=== PATIENT | male | born 1945 | race Caucasian/White ===

== ENCOUNTER → 2020-04-19 14:00 | Outpatient (BNVA) | payer MEDICARE, OTHER, SELFPAY | PROVIDERS: Family Provider Family Medicine; PCP Family Medicine; Visit Provider Nurse Practitioner | DX: Z20.828 Contact with and (suspected) exposure to other viral communicable diseases (principal) | CPT/HCPCS: 87635 ==

== ENCOUNTER → 2021-03-19 09:42 | Outpatient (BNVA) | payer MEDICARE, OTHER, SELFPAY | PROVIDERS: Family Provider Family Medicine; PCP Family Medicine; Visit Provider Nurse Practitioner Family | DX: Z20.822 Contact with and (suspected) exposure to COVID-19 (principal); J06.9 Acute upper respiratory infection, unspecified | CPT/HCPCS: 87635 ==

== ENCOUNTER → 2021-11-27 07:53 | Outpatient (BNVA) | payer MEDICARE, OTHER, SELFPAY | PROVIDERS: Family Provider Family Medicine; PCP Family Medicine; Visit Provider Family Medicine | DX: E11.9 Type 2 diabetes mellitus without complications (principal) | CPT/HCPCS: 80053; 83036; 85025 ==

== ENCOUNTER → 2022-04-08 07:33 | Outpatient (BNVA) | payer MEDICARE, OTHER, SELFPAY | PROVIDERS: Family Provider Family Medicine; PCP Family Medicine; Visit Provider Clinical Nurse Specialist Adult Health | DX: R31.9 Hematuria, unspecified (principal) | CPT/HCPCS: 81000; 87086 ==

== ENCOUNTER → 2022-06-10 08:08 | Outpatient (BNVA) | payer MEDICARE, OTHER, SELFPAY | PROVIDERS: Family Provider Family Medicine; PCP Family Medicine; Visit Provider Family Medicine | DX: I10 Essential (primary) hypertension (principal); M77.9 Enthesopathy, unspecified; R31.9 Hematuria, unspecified | CPT/HCPCS: 80053; 80061; 85025 ==

== ENCOUNTER → 2022-08-09 10:51 | Outpatient (BNVA) | payer MEDICARE, OTHER, SELFPAY | PROVIDERS: Family Provider Family Medicine; PCP Family Medicine; Visit Provider Clinical Nurse Specialist Adult Health | DX: R31.0 Gross hematuria (principal) | CPT/HCPCS: 87086 ==

== ENCOUNTER → 2022-08-13 14:23 | Outpatient (BNVA) | payer MEDICARE, OTHER, SELFPAY | PROVIDERS: Family Provider Family Medicine; PCP Family Medicine; Visit Provider Clinical Nurse Specialist Adult Health | DX: R31.0 Gross hematuria (principal) | CPT/HCPCS: 81000 ==

== ENCOUNTER → 2022-12-10 08:04 | Outpatient (BNVA) | payer MEDICARE, OTHER, SELFPAY | PROVIDERS: Family Provider Family Medicine; PCP Family Medicine; Visit Provider Family Medicine | DX: E79.0 Hyperuricemia without signs of inflammatory arthritis and tophaceous disease (principal); R31.9 Hematuria, unspecified; I10 Essential (primary) hypertension; M77.9 Enthesopathy, unspecified; Z13.6 Encounter for screening for cardiovascular disorders; M19.90 Unspecified osteoarthritis, unspecified site | CPT/HCPCS: 80053; 80061; 84550; 85025 ==

== ENCOUNTER → 2023-05-27 08:19 | Outpatient (BNVA) | payer MEDICARE, OTHER, SELFPAY | PROVIDERS: Family Provider Family Medicine; PCP Family Medicine; Visit Provider Family Medicine | DX: I10 Essential (primary) hypertension (principal); R31.0 Gross hematuria; C67.9 Malignant neoplasm of bladder, unspecified; B35.9 Dermatophytosis, unspecified; E79.0 Hyperuricemia without signs of inflammatory arthritis and tophaceous disease | CPT/HCPCS: 80053; 80061; 84550; 85025 ==

== ENCOUNTER 2023-10-27 22:25 | Emergency (ER) | payer MEDICARE, OTHER, SELFPAY ==
[2023-10-27 22:33] VITALS: BP 134/82; PULSE 81; RESP 20; TEMP 36.9; O2SAT 100
--- NOTE | 2023-10-27 23:07 | ED_ITS ---
HPI - Male Genitourinary 2 General: Chief complaint: Urogenital-Male Stated complaint: Bladder spasms blood in cath tube Time Seen by Provider: 10/27/23 22:50 Source: patient Mode of arrival: ambulatory Limitations: no limitations History of Present Illness: 77-year-old male history of bladder canc er states he started having hematuria today he went to his urologist clinic in [place] had a Noble placed states that he has not had any output from the Noble in the last 2 hours and has been having severe pain over his bladder. Denies any fever denies any vomiting diarrhea Associated symptoms: Reports hematuria; Deny nausea or vomiting Review of Systems 2 Const: Denies: fever(s), chills, body aches or change in appetite ENMT: Denies: throat pain or dental pain Card: Denies: chest pain Resp: Denies: dyspnea GI: Denies: abdominal pain, nausea, vomiting or diarrhea : Reports: difficulty urinating and hematuria Musc: Denies: neck pain or back pain Skin/Breast: Denies: rash Neuro: Denies: headache(s) PFSH ED 2 PFSH: Medical History Essential hypertension Prostate cancer with hx of radiation Social History Marital status: Physical Exam 2 Const: COMMON NORMALS: patient oriented x3 HENMT: COMMON NORMALS: normocephalic and atraumatic HEAD & SCALP: n ormocephalic and atraumatic Eye: COMMON NORMALS: conjunctivae normal CONJUNCTIVA: Yes conjunctivae normal Neck/C-Spine: COMMON NORMALS: full ROM and supple Chest: COMMONS NORMALS: normal inspection of the chest Resp: COMMON NORMALS: normal respiratory effort Cardio: COMMON NORMALS: regular rate RATE: regular rate GI: OTHER: Tenderness over his bladder : OTHER: Noble in place with blood no output at this time Extremity: COMMON NORMALS: normal to inspection and full ROM Neuro: COMMON NORMALS: patient oriented x3, moves all extremities and no focal motor deficits Psych: COMMON NORMALS: mental status grossly normal, Normal thought process present and cooperative THOUGHT PROCESS: Normal thought process present Skin: COMMON NORMALS: no rashes or lesions noted and no wounds GENERAL SKIN EXAM: no rashes or lesions noted Course 2 Vital Signs: Vital signs: Vital Signs Temperature 98.4 F 10/27/23 22:33 Pulse Rate 66 10/28/23 00:34 Respiratory Rate 16 10/28/23 00:34 Blood Pressure 116/64 10/28/23 00:34 Pulse Oximetry 97 10/28/23 00:34 MDM - Male Medical Decision Making Patient presents here with urinary retention along with hematuria was able to get some slight urine after Noble was placed he had some relief of his pain still extreme hematuria though. CT does show likely blood products in his bladder and concern that Noble was outside of the bladder but no sign of free air his abdominal exam here currently is benign with no rigidness I did speak to [place] where his urologist is and will transfer him there ER to ER Medical Records I reviewed the patient's medical records. Lab Data I reviewed the patient's lab results. 10/27/23 23:55 10/27/23 23:55 Radiology Impressions Abdomen/Pelvis CT 10/28/23 00:00 IMPRESSION: 1. Question whether the Noble catheter tip extends beyond the bladder wall seen on sagittal image 39. No free air in the peritoneal cavity or in the perivesical space. 2. Distended urinary bladder despite the presence of the Noble catheter. There is hyperdense material noted in the bladder lumen which may represent a mix of blood products and contrast, correlate clinically. Underlying bladder mass cannot on this exam. 3. Cholelithiasis. Laboratory Results WBC 9.77 10^3/uL (3.29-11.43) 10/27/23 23:55 RBC 4.42 10^6/uL (3.85-5.65) 10/27/23 23:55 Hgb 15.20 g/dL (11.27-16.99) 10/27/23 23:55 Hct 41.1 % (37-53) 10/27/23 23:55 MCV 93.0 fl (82-101) 10/27/23 23:55 MCH 34.4 pg (27-33) H 10/27/23 23:55 MCHC 37.0 g/dL (30-55) 10/27/23 23:55 RDW 13.3 % (12.1-15.1) 10/27/23 23:55 Plt Count 209 10^3/cmm (157-399) 10/27/23 23:55 MPV 10.5 fL (7.4-10.4) H 10/27/23 23:55 Neut % (Auto) 62.2 % 10/27/23 23:55 Lymph % (Auto) 26.7 % 10/27/23 23:55 [place] % (Auto) 9.1 % 10/27/23 23:55 Eos % (Auto) 1.2 % 10/27/23 23:55 Baso % (Auto) 0.6 % 10/27/23 23:55 Neut # (Auto) 6.07 10^3/uL (1.8-7.7) 10/27/23 23:55 Lymph # (Auto) 2.6 10^3/uL (0.8-4.8) 10/27/23 23:55 [place] # (Auto) 0.9 10^3/uL (0.2-0.9) 10/27/23 23:55 Eos # (Auto) 0.1 10^3/uL (0.0-0.8) 10/27/23 23:55 Baso # (Auto) 0.1 10^3/uL (0.0-0.1) 10/27/23 23:55 Nucleated RBC % (auto) 0 % 10/27/23 23:55 Nucleated RBCs # 0.0 /100WBC 10/27/23 23:55 Sodium 139 mmol/L (136-145) 10/27/23 23:55 Potassium 3.7 mmol/L (3.5-5.1) 10/27/23 23:55 Chloride 102 mmol/L (98-107) 10/27/23 23:55 Carbon Dioxide 20 mmol/L (22-29) L 10/27/23 23:55 Anion Gap 20.7 (5-19) H 10/27/23 23:55 BUN 15 mg/dL (8-23) 10/27/23 23:55 Creatinine 1.1 mg/dL (0.7-1.2) 10/27/23 23:55 GFR Calculation Not Reportable 10/27/23 23:55 Glucose 141 mg/dL (65-115) H 10/27/23 23:55 Calculated Osmolality 291 mOsm/kg (285-295) 10/27/23 23:55 Calcium 9.0 mg/dL (8.5-10.5) 10/27/23 23:55 All radiology interpretation(s) finalized by discharge Discharge Plan Discharge Patient Disposition: Xfer Short-Term Hosp Clinical Impression: Bladder cancer, Hematuria, Acute urinary retention Condition: Stable Prescriptions: No Action valsartan 160 mg tablet 160 mg PO DAILY Qty: 90 1RF clotrimazole 1 % cream 1 applic topical BID 28 Days Qty: 45 1RF amlodipine 5 mg tablet 5 mg PO DAILY Qty: 90 1RF prednisone 20 mg tablet 40 mg PO DAILY 5 Days Qty: 10 0RF oxybutynin chloride 5 mg tablet 5 mg PO BID Qty: 60 0RF allopurinol 300 mg tablet 300 mg PO DAILY Qty: 90 3RF Referrals: Freddie Worrell DO [Primary Care Provider] - Coding Level of Care Code ED [employer] for [facility]
[2023-10-27] MEDS: morphine 4 mg/mL SDV 1 mL IVP (23:28)
[2023-10-27] MEDS: ondansetron 2 mg/ML SDV 2 mL 4 MG IVP (23:28)
[2023-10-27 23:30] VITALS: BP 119/64; PULSE 68; RESP 18; O2SAT 100
[2023-10-28] VITALS (8 sets, daily range): BP systolic 112–127; BP diastolic 64–78; PULSE 66–86; RESP 15–18; O2SAT 85–100
--- NOTE | 2023-10-28 | CTR_ITS ---
PROCEDURE INFORMATION: Exam: CT Abdomen And Pelvis With Contrast Exam date and time: 10/28/2023 12:54 AM Age: 77 years old Clinical indication: Other: Hematuria TECHNIQUE: Imaging protocol: Computed tomography of the abdomen and pelvis with contrast. Radiation optimization: All CT scans at this facility use at least one of these dose optimization techniques: automated exposure control; mA and/or kV adjustment per patient size (includes targeted exams where dose is matched to clinical indication); or iterative reconstruction. Contrast material: OMNI 350; Contrast volume: 100 ml; Contrast route: INTRAVENOUS (IV); COMPARISON: No relevant prior studies available. RADIATION DOSE METRICS: Total DLP (mGy-cm): 1045.1 FINDINGS: Diaphragm: Small hiatal hernia. Liver: Fatty liver. Gallbladder and biliary ducts: Small stone noted in the gallbladder. Pancreas: No ductal dilation. Spleen: Too small to characterize hypodense lesion in the spleen measuring 7 mm. Adrenal glands: Normal. No mass. Kidneys and ureters: No hydronephrosis. Stomach and bowel: Scattered colonic diverticulosis without findings of diverticulitis. Appendix: No evidence of appendicitis. Intraperitoneal space: No free air in the peritoneal cavity or in the perivesical space. Vasculature: No abdominal aortic aneurysm. Lymph nodes: No enlarged lymph nodes. Urinary bladder: Question whether the Noble catheter tip extends beyond the bladder wall seen on sagittal image 39. Distended urinary bladder despite the presence of the Noble catheter. There is hyperdense material noted in the bladder lumen which may represent a mix of blood products and contrast, correlate clinically. Reproductive: Unremarkable as visualized. Bones/joints: Degenerative changes of the spine. Soft tissues: Unremarkable. CT/CT abdomen pelvis w con* [id number] IMPRESSION: 1. Question whether the Noble catheter tip extends beyond the bladder wall seen on sagittal image 39. No free air in the peritoneal cavity or in the perivesical space. 2. Distended urinary bladder despite the presence of the Noble catheter. There is hyperdense material noted in the bladder lumen which may represent a mix of blood products and contrast, correlate clinically. Underlying bladder mass cannot on this exam. 3. Cholelithiasis.
[2023-10-28] MEDS: HYDROmorphone 1 mg/mL INJ 1 mL IVP ×2 (00:01→02:57)
[2023-10-28 00:09] LABS: Basophils # 0.1 10^3/uL (0.0-0.1); Basophils % 0.6 %; Eosinophils # 0.1 10^3/uL (0.0-0.8); Eosinophils % 1.2 %; Hematocrit 41.1 % (37-53); Lymphocytes # 2.6 10^3/uL (0.8-4.8); Lymphocytes % 26.7 %; Mean Corpuscular Hemoglobin 34.4 pg (27-33); Mean Platelet Volume 10.5 fL (7.4-10.4); Monocytes # 0.9 10^3/uL (0.2-0.9); Monocytes % 9.1 %; Neutrophils # 6.07 10^3/uL (1.8-7.7); Neutrophils % 62.2 %; Nucleated Red Blood Cells % 0 %; Platelet Count 209 10^3/cmm (157-399); Red Blood Count 4.42 10^6/uL (3.85-5.65); Red Cell Distribution Width 13.3 % (12.1-15.1); White Blood Count 9.77 10^3/uL (3.29-11.43)
[2023-10-28 00:27] LABS: Anion Gap 20.7 (5-19); Blood Urea Nitrogen 15 mg/dL (8-23); Carbon Dioxide 20 mmol/L (22-29); Chloride 102 mmol/L (98-107); Glucose 141 mg/dL (65-115); Osmolality Calculated 291 mOsm/kg (285-295); Potassium 3.7 mmol/L (3.5-5.1); Sodium 139 mmol/L (136-145)
--- NOTE | 2023-10-28 00:41 | PC.NURSE ---
This nurse removed existing Noble Catheter that was not draining per provider order, nurse inserted 18F 3way catheter with no gravity return of urine/blood however nurse was able to flush and pull blood/clots slowly with a 60 ml syringe, attempted to run CBI however still no urine/blood return by gravity. Nurse removed 18F 3way catheter per provider order to insert a 24F 3way catheter with immediate return of approx 600 ml of dark red blood before significantly slowing to near no gravity drainage. Nurse irrigated with another 500 ml of sterile water with very little urine/blood return through catheter
[2023-10-28] MEDS: iohexol 350 mg/mL 500 mL Btl (per mL) IV (00:57)
--- NOTE | 2023-10-28 04:05 | PC.NURSE ---
PT PLACED ON 2L NC DUE TO DECREASING SPO2 WHEN ASLEEP.
== END 2023-10-28 05:04 | disposition short-term general hospital (02) ==
PROVIDERS: Emergency Provider Emergency Medicine; PCP Family Medicine
DX: R33.9 Retention of urine, unspecified (principal); R31.9 Hematuria, unspecified; C67.9 Malignant neoplasm of bladder, unspecified; I10 Essential (primary) hypertension; Z85.46 Personal history of malignant neoplasm of prostate; Z92.3 Personal history of irradiation
CPT/HCPCS: 51702; 74177; 80048; 85025; 96374; 96375; 96376; 99285; J1170; J2270; J2405; Q9967

== ENCOUNTER → 2023-12-09 07:53 | Outpatient (BNVA) | payer MEDICARE, OTHER, SELFPAY | PROVIDERS: PCP Family Medicine; Visit Provider Family Medicine | DX: I10 Essential (primary) hypertension (principal); N28.9 Disorder of kidney and ureter, unspecified; E79.0 Hyperuricemia without signs of inflammatory arthritis and tophaceous disease | CPT/HCPCS: 80053; 80061; 84550; 85007; 85027 ==

== ENCOUNTER → 2024-05-24 07:58 | Outpatient (BNVA) | payer MEDICARE, OTHER, SELFPAY | PROVIDERS: PCP Family Medicine; Visit Provider Family Medicine | DX: I10 Essential (primary) hypertension (principal); N28.9 Disorder of kidney and ureter, unspecified; C67.9 Malignant neoplasm of bladder, unspecified | CPT/HCPCS: 80053; 80061; 85025 ==

== ENCOUNTER → 2024-11-16 08:02 | Outpatient (BNVA) | payer MEDICARE, OTHER, SELFPAY | PROVIDERS: PCP Family Medicine; Visit Provider Family Medicine | DX: C67.9 Malignant neoplasm of bladder, unspecified (principal); N28.9 Disorder of kidney and ureter, unspecified; E79.0 Hyperuricemia without signs of inflammatory arthritis and tophaceous disease; I10 Essential (primary) hypertension; Z13.6 Encounter for screening for cardiovascular disorders | CPT/HCPCS: 80053; 80061; 82306; 82607; 84443; 84550; 85025 ==

== ENCOUNTER → 2025-01-12 08:17 | Outpatient (BNVA) | payer MEDICARE, OTHER, SELFPAY | PROVIDERS: PCP Family Medicine; Visit Provider Dermatology | DX: L57.8 Other skin changes due to chronic exposure to nonionizing radiation (principal); L82.1 Other seborrheic keratosis; D48.5 Neoplasm of uncertain behavior of skin; L57.0 Actinic keratosis | CPT/HCPCS: 11102; 17000; 99203 ==